=== PATIENT | female | born 1995 | race Caucasian/White ===

== ENCOUNTER 2018-05-16 10:28 | Emergency (ER) | payer SELFPAY ==
[2018-05-16 10:36] VITALS: BMI 24.7
[2018-05-16 11:22] LABS: BASO % 0.8 % (0-2.0); EOS % 0.7 % (0-4.5); HEMATOCRIT 34.8 % (32.4-45.2); HEMOGLOBIN 12.1 GM/dL (10.7-15.3); LYMPH % 36.6 % (8-40); MCH 28.5 pg (25.7-33.7); MCHC 34.9 g/dl (32.0-36.0); MEAN CELL VOLUME 81.8 fl (80-96); MONO % 6.4 % (3.8-10.2); NEUT % 55.5 % (42.8-82.8); PLATELET COUNT 253 K/MM3 (134-434); RBC 4.26 M/mm3 (3.60-5.2); RDW 13.6 % (11.6-15.6); WHITE BLOOD COUNT 5.3 K/mm3 (4.0-10.0)
--- NOTE | 2018-05-16 11:32 | PDOC ---
History of Present Illness - General Chief Complaint: Vaginal Bleeding Stated Complaint: VAGINAL BLEEDING Time Seen by Provider: 05/16/18 10:44 History Source: Patient Exam Limitations: No Limitations - History of Present Illness Initial Comments: 05/16/18 11:40 Pt is a previously healthy 22yo F presenting today for vaginal bleeding that started this AM. LMP was around 2 months ago (March 30). She took two tests and both were positive. She started having light bleeding today , not passing clots. She denies abdominal pain, n/v/d, lightheadedness, syncope , chest pain, palpitations, vaginal discharge, urinary symptoms. Denies history of STDs. She has been unable to see an document review attorney due to insurance. PMD: none PMH: none PSH: none Meds: none Allergies: nkda Social: denies Past History - Past Medical History Allergies/Adverse Reactions: Allergies Allergy/AdvReac Type Severity Reaction Status Date / Time No Known Allergies Allergy Verified 12/02/13 21:47 Home Medications: Ambulatory Orders NK [No Known Home Medication] 05/16/18 Cardiac Disorders: No COPD: No Diabetes: No HTN: No Psychiatric Problems: No - Surgical History Appendectomy: No Cholecystectomy: No Lung Surgery: No - Reproductive History Is Patient Now?: Yes (#): 1 Para: 0 - Immunization History Immunization Up to Date: Yes - Suicide/Smoking/Psychosocial Hx Smoking Status: No Smoking History: Never smoked Have you smoked in the past 12 months: No Number of Cigarettes Smoked Daily: 0 Information on smoking cessation initiated: No Hx Alcohol Use: No Drug/Substance Use Hx: No Substance Use Type: None Review of Systems - Review of Systems Constitutional: No: Chills, Fever, Weakness HEENTM: No: Symptoms Reported Respiratory: No: Shortness of Breath, Hemoptysis Cardiac (ROS): No: Chest Pain, Lightheadedness, Palpitations, Syncope ABD/GI: No: Constipated, Diarrhea, Nausea, Rectal Bleeding, Vomiting, Abdominal cramping, Tarry Stools : Yes: See HPI, Other (vaginal bleeding). No: Burning, Dysuria, Hematuria Musculoskeletal: No: Symptoms Reported Integumentary: No: Symptoms Reported Neurological: No: Symptoms reported *Physical Exam - Vital Signs Last Vital Signs Temp Pulse Resp BP Pulse Ox 98.3 F 79 18 124/89 98 05/16/18 10:34 05/16/18 10:34 05/16/18 10:34 05/16/18 10:34 05/16/18 10:34 - Physical Exam General Appearance: Yes: Nourished, Appropriately Dressed. No: Apparent Distress HEENT: positive: EOMI, ASHLEY, Normal ENT Inspection. negative: Pale Conjunctivae Neck: positive: Trachea midline, Supple. negative: Lymphadenopathy (R), Lymphadenopathy (L) Respiratory/Chest: positive: Lungs Clear, Normal Breath Sounds. negative: Rales , Rhonchi, Stridor Cardiovascular: positive: Regular Rhythm, Regular Rate, S1, S2. negative: Murmur, Tachycardia Vascular Pulses: Carotid (R): 2+, Carotid (L): 2+, Dorsalis-Pedis (R): 2+, Doralis-Pedis (L): 2+ Female Pelvic Exam: positive: normal external exam, cervical os closed, normal adnexa. negative: CMT, discharge, lesions, vaginal bleeding Gastrointestinal/Abdominal: positive: Normal Bowel Sounds, Soft. negative: Tender Musculoskeletal: negative: CVA Tenderness Extremity: positive: Normal Capillary Refill. 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 NML intact, Fully Oriented, Alert, Normal Mood/ Affect, Normal Response, Motor Strength 5/5 Moderate Sedation - Procedure Monitoring Vital Signs: Procedure Monitoring Vital Signs Temperature 98.3 F 05/16/18 10:34 Pulse Rate 79 05/16/18 10:34 Respiratory Rate 18 05/16/18 10:34 Blood Pressure 124/89 05/16/18 10:34 O2 Sat by Pulse Oximetry (%) 98 05/16/18 10:34 ED Treatment Course - LABORATORY CBC & Chemistry Diagram: 05/16/18 11:15 05/16/18 10:57 - ADDITIONAL ORDERS Additional order review: 05/16/18 11:15 RBC 4.26 MCV 81.8 MCHC 34.9 RDW 13.6 MPV 8.0 Neutrophils % 55.5 Lymphocytes % 36.6 Monocytes % 6.4 Eosinophils % 0.7 Basophils % 0.8 Medical Decision Making - Medical Decision Making 05/16/18 11:43 Pt is a previously healthy 22yo F presenting today for vaginal bleeding that started this AM. LMP was around 2 months ago (March 30). She took two tests and both were positive. She started having light bleeding today , not passing clots. She denies abdominal pain, n/v/d, lightheadedness, syncope , chest pain, palpitations, vaginal discharge, urinary symptoms. Denies history of STDs. She has been unable to see an document review attorney due to insurance. Vitals: wnl PE: benign. Os closed, no blood in vault, no CMT or adnexal tenderness or masses. DDx: ectopic, threatened , menstrual cycle, ordered basic labs and upreg. If positive, will go to [facility]. Labs wnl. Upreg positive. PT to go to [facility] and BHCG quant ordered. [facility] shows single live IUP at 6 weeks. BHCG quant compatible with 6 week . Pt has OB, will schedule appointment. Appt with pmd scheduled May 23. Pt is hemodynamically stable at this time. Will be dc home. Has appropriate f.u. 05/16/18 18:08 Pt DC prior to T+S results. Pt will need to come back for Rhogam if negative blood type T+S: AB positive. Pt does not need rhogam at this time. Will follow up with OB and PMD *DC/Admit/Observation/Transfer Diagnosis at time of Disposition: Vaginal bleeding Qualifiers: Weeks of gestation: less than 8 weeks Qualified Code(s): Z3A.01 - Less than 8 weeks gestation of - Discharge Dispostion Disposition: HOME Condition at time of disposition: Stable - Referrals Referrals: Miranda Hector MD [Staff Physician] - Summer Ly DO [Staff Physician] - - Patient Instructions Additional Instructions: You were seen here today for vaginal bleeding. Your tests show that you are , Congratulations! Please see your document review attorney in the next few days so that you can have a blood test to make sure your baby is growing. You can also come back here in 2 days for the test if you continue to have vaginal bleeding. You have an appointment on May 23 at 10:[address] Hector. Come back to the emergency room if vaginal bleeding gets worse, you start to have abdominal pain, you start vomiting, you feel lightheaded, you pass out, or if any new concerning symptom develops. Thank you - Post Discharge Activity
[2018-05-16 11:46] LABS: HCG,QUALITATIVE URINE Positive
[2018-05-16 11:52] LABS: ALK PHOS 59 U/L (45-117); ANION GAP 8 MMOL/L (8-16); BILIRUBIN,TOTAL 0.3 mg/dL (0.2-1); BLOOD UREA NITROGEN 13 mg/dL (7-18); CALCIUM 8.7 mg/dL (8.5-10.1); CHLORIDE 105 mmol/L (98-107); CO2 24 mmol/L (21-32); CREATININE 0.6 mg/dL (0.55-1.3); GLUCOSE,RANDOM 84 mg/dL (74-106); POTASSIUM 4.1 mmol/L (3.5-5.1); SGOT/AST 14 U/L (15-37); SGPT/ALT 26 U/L (13-61); SODIUM 136 mmol/L (136-145); TOT PROT 7.6 g/dl (6.4-8.2)
[2018-05-16 12:01] LABS: URINE APPEARANCE CLEAR; URINE BILIRUBIN NEGATIVE (<2.0 mg/dL); URINE COLOR YELLOW; URINE GLUCOSE (UA) NEGATIVE (NEGATIVE); URINE KETONE NEGATIVE (NEGATIVE); URINE LEUK ESTERASE NEGATIVE (NEGATIVE); URINE NITRITE NEGATIVE (NEGATIVE); URINE PROTEIN NEGATIVE (NEGATIVE); URINE UROBILINOGEN NEGATIVE mg/dL (0.2-1.0)
[2018-05-16 12:26] LABS: EPI CELLS FEW /HPF (FEW); URINE MUCUS FEW
[2018-05-16 14:42] VITALS: BP 111/65; PULSE 75; TEMP 98.5
--- NOTE | 2018-05-16 15:14 | PDOC ---
Attending Attestation - Resident Resident Name: Josy Anthony - ED Attending Attestation I have performed the following: I have examined & evaluated the patient, The case was reviewed & discussed with the resident, I agree w/resident's findings & plan - HPI HPI: 05/16/18 15:12 22y/o F LMP about 6 weeks with vaginal spotting and slight cramping. no clots. - Physicial Exam PE: 05/16/18 15:13 vss abd soft/nt/nd bs nl pelvic per resident, os closed without active bleeding - Medical Decision Making 05/16/18 15:13 22y/o F with 1st trimester vag bleeding. ua clear tvus with IUP and normal ovaries T+S sent, pt had to leave, will f/u and call back if rH negative OB f/u 05/16/18 20:44 AB +, no further intervention needed
== END 2018-05-16 14:55 | disposition home or self-care (01) ==
LOC: JER 10:28
DX: O26.891 Other specified pregnancy related conditions, first trimester (principal); Z3A.01 Less than 8 weeks gestation of pregnancy; N93.9 Abnormal uterine and vaginal bleeding, unspecified
CPT/HCPCS: 36415; 76830-TC; 80053; 81003; 81015; 84702; 84703; 85025; 86850; 86900; 86901; 99283-25

== ENCOUNTER 2018-12-15 02:12 | Inpatient (IN) | payer OTHER ==
[2018-12-15 02:27] VITALS: BMI 28.3
--- NOTE | 2018-12-15 03:02 | PDOC ---
History of Present Illness - General Chief Complaint: Cold Symptoms Stated Complaint: FEVER, 37 WKS Time Seen by Provider: 12/15/18 02:41 History Source: Patient Exam Limitations: No Limitations - History of Present Illness Initial Comments: 12/15/18 03:02 23 yo F presenting with 6 hours of fever and chills. She is 37 weeks . Measured temperature to be 101.4F at home. Denies abdominal pain, n/v/ d, dysuria, cough, rhinorrhea, or sore throat. No sick contacts. No recent abx use. Endorses good movement, no complications during this with regular WASTE DUSTER care. Denies vaginal bleeding or discharge. No pmh Meds: vitamins NKDA No surgical hx Past History - Past Medical History Allergies/Adverse Reactions: Allergies Allergy/AdvReac Type Severity Reaction Status Date / Time No Known Allergies Allergy Verified 12/15/18 02:21 Home Medications: Ambulatory Orders Nitrofurantoin Monohyd/M-Cryst [Macrobid -] 100 mg PO BID #14 capsule 12/15/18 Cardiac Disorders: No COPD: No Diabetes: No HTN: No Psychiatric Problems: No - Surgical History Appendectomy: No Cholecystectomy: No Lung Surgery: No - Reproductive History (#): 1 Para: 0 - Immunization History Immunization Up to Date: Yes - Suicide/Smoking/Psychosocial Hx Smoking Status: No Smoking History: Never smoked Have you smoked in the past 12 months: No Number of Cigarettes Smoked Daily: 0 Information on smoking cessation initiated: No Hx Alcohol Use: No Drug/Substance Use Hx: No Substance Use Type: None Review of Systems - Review of Systems Able to Perform ROS?: Yes Is the patient limited Latvian proficient: No Constitutional: Yes: Chills, Fever HEENTM: No: Ear Pain, Ear Discharge, Nose Pain, Throat Pain Respiratory: No: Cough, Shortness of Breath, Productive cough ABD/GI: No: Diarrhea, Nausea, Vomiting : No: Burning, Dysuria *Physical Exam - Vital Signs Last Vital Signs Temp Pulse Resp BP Pulse Ox 101.4 F H 97 H 18 139/87 97 12/15/18 02:21 12/15/18 02:21 12/15/18 02:21 12/15/18 02:21 12/15/18 02:21 - Physical Exam General Appearance: Yes: Nourished, Appropriately Dressed. No: Apparent Distress HEENT: positive: EOMI, ASHLEY, Normal ENT Inspection, Normal Voice, Symmetrical, TMs Normal, Pharynx Normal, Hearing Grossly Normal. negative: Muffled/Hoarse voice, Nasal Congestion, Rhinorrhea, TM Bulging, TM Dull, TM Erythema, Thrush Respiratory/Chest: positive: Lungs Clear, Normal Breath Sounds. negative: Respiratory Distress, Accessory Muscle Use, Labored Respiration, Rapid RR, Decreased Breath Sounds, Crackles, Rhonchi, Wheezing Cardiovascular: positive: Regular Rhythm, Regular Rate, S1, S2. negative: Murmur, Diastolic Murmur, Systolic Murmur, Gallop/S3, Gallop/S4 Gastrointestinal/Abdominal: positive: Normal Bowel Sounds, Soft. negative: Tender, Guarding, Rebound, Tenderness Musculoskeletal: negative: CVA Tenderness Integumentary: positive: Normal Color, Warm. 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 Endorsed a frontal headache that has since resolved. ROS negative. Physical exam benign. Fever, 37 weeks - CBC, CMP - UA, UCx - IV, NS, Tylenol Dispo: L&D obs -> home *DC/Admit/Observation/Transfer Diagnosis at time of Disposition: Third trimester Fever Qualifiers: Fever type: unspecified Qualified Code(s): R50.9 - Fever, unspecified - Discharge Dispostion Disposition: HOME Condition at time of disposition: Stable Decision to Admit order: No - Prescriptions Prescriptions: Nitrofurantoin Monohyd/M-Cryst [Macrobid -] 100 mg PO BID #14 capsule - Referrals Referrals: Elder Franklin MD [Primary Care Provider] - - Patient Instructions Printed Discharge Instructions: DI for Urinary Tract Infection (UTI) Additional Instructions: Please follow up with your WASTE DUSTER and Primary Care Physician within the next 4 days Please return to the Emergency Department if you experience any of the following symptoms: worsening fever, increasing fatigue, abdominal pain, weakness, change in mental status, or vaginal bleeding. - Post Discharge Activity
[2018-12-15] MEDS ORDERED: SODIUM CHLORIDE 0.9% 500 ML INFUS.BAG IV ONE (03:10)
[2018-12-15] MEDS ORDERED: ACETAMINOPHEN 1000 MG/100 ML VIAL (NON FORMULARY) IVPB ONE ×2 (03:10→14:38)
[2018-12-15] MEDS ORDERED: ACETAMINOPHEN INJECTION 100 ML IVPB ONE (03:43)
--- NOTE | 2018-12-15 03:59 | PDOC ---
Attending Attestation - Resident Resident Name: Wally Henning - ED Attending Attestation I have performed the following: I have examined & evaluated the patient, The case was reviewed & discussed with the resident, I agree w/resident's findings & plan, Exceptions are as noted - HPI HPI: 12/15/18 04:07 23F here with fevers and chills starting last night. No other complaints - Physicial Exam PE: 12/15/18 04:08 Agree with exam as documented by resident - Medical Decision Making 12/15/18 04:08 Likely viral syndrome symptomatic tx, re-eval dispo to L&D when acute medical eval neg
[2018-12-15 04:01] LABS: BASO % 0.4 % (0-2.0); HEMATOCRIT 25.5 % (32.4-45.2); HEMOGLOBIN 8.4 GM/dL (10.7-15.3); LYMPH % 12.1 % (8-40); MEAN CELL VOLUME 75.9 fl (80-96); MEAN PLT VOLUME 8.3 fl (7.5-11.1); MONO % 5.2 % (3.8-10.2); NEUT % 82.3 % (42.8-82.8); PLATELET COUNT 208 K/MM3 (134-434); RBC 3.36 M/mm3 (3.60-5.2); RDW 15.6 % (11.6-15.6); WHITE BLOOD COUNT 9.1 K/mm3 (4.0-10.0)
[2018-12-15 04:23] LABS: ALBUMIN 2.6 g/dl (3.4-5.0); BILIRUBIN,TOTAL 0.3 mg/dL (0.2-1); BLOOD UREA NITROGEN 10.6 mg/dL (7-18); CALCIUM 8.4 mg/dL (8.5-10.1); CREATININE 0.5 mg/dL (0.55-1.3); POTASSIUM 3.9 mmol/L (3.5-5.1); TOT PROT 5.9 g/dl (6.4-8.2)
[2018-12-15 04:43] LABS: EPI CELLS 7.5 /HPF (0-5/HPF); HYALINE CASTS 3 /lpf (0-8); URINE APPEARANCE CLEAR; URINE BILIRUBIN NEGATIVE (NEGATIVE); URINE COLOR YELLOW; URINE GLUCOSE (UA) NEGATIVE (NEGATIVE); URINE KETONE NEGATIVE (NEGATIVE); URINE LEUK ESTERASE 2+ (NEGATIVE); URINE NITRITE NEGATIVE (NEGATIVE); URINE PROTEIN TRACE (NEGATIVE); URINE RBC 2 /hpf (0-4); URINE UROBILINOGEN 0.2 mg/dL (0.2-1.0); URINE WBC 16 /hpf (0-5)
[2018-12-15] MEDS ORDERED: NITROFURANTOIN MACROCRYSTAL 50 MG CAPSULE (FP) PO ONE (05:15)
[2018-12-15] MEDS ORDERED: NITROFURANTOIN MACROCRYSTAL 50 MG CAPSULE (FP) PO SCH (05:15)
[2018-12-15] MEDS ORDERED: NITROFURANTOIN MACROCRYSTAL 50 MG CAPSULE (FP) ONE (05:24)
[2018-12-15] MEDS ORDERED: DEXTROSE 5%-LACTATED RINGERS 500 ML IV ONE ×2 (06:00→07:00)
[2018-12-15] MEDS ORDERED: CEFAZOLIN 1 GM in DEXTROSE 5%-WATER - 50 ML IVPB ONE (07:15)
[2018-12-15] MEDS ORDERED: ACETAMINOPHEN 325 MG TABLET (FP) PO PRN (08:10)
--- NOTE | 2018-12-15 08:54 | HP ---
Past Medical History - Admission Chief Complaint: Fever/chills History of Present Illness: 23 y/o with SIUP at 37 weeks with complaints of fevers/chills. Seen in ED, diagnosed with "UTI." NO contractions/cramps/VB. +FM. Pt also found to be anemic. History Source: Medical Record Limitations to Obtaining History: No Limitations - Past Medical History Cardiovascular: No: HTN, RI Pulmonary: No: Asthma, COPD Gastrointestinal: No: GERD Renal/: Yes: UTI Reproductive: No: Ectopic , Endometriosis, Fibroids ...: 1 ...Para: 0 ...Term: 0 ...: 0 ...Spon : 0 ...Induced : 0 ...EDC by Sono: 01/04/19 Heme/Onc: Yes: Anemia Infectious Disease: No: HIV, MRSA, STD's Psych: No: Anxiety, Bipolar, Depression - Past Surgical History Past Surgical History: Yes: None Hx Myomectomy: No Hx Transabdominal Cerclage: No - Smoking History Smoking history: Never smoked Have you smoked in the past 12 months: No Aproximately how many cigarettes per day: 0 - Alcohol/Substance Use Hx Alcohol Use: No - Social History Usual Living Arrangement: Yes: With Spouse ADL: Independent History of Recent Travel: No Home Medications - Allergies Allergies/Adverse Reactions: Allergies Allergy/AdvReac Type Severity Reaction Status Date / Time No Known Allergies Allergy Verified 12/15/18 02:21 - Home Medications Home Medications: Ambulatory Orders Nitrofurantoin Monohyd/M-Cryst [Macrobid -] 100 mg PO BID #14 capsule 12/15/18 Physical Exam - Maternity Vital Signs: Vital Signs Temperature 98.3 F 12/15/18 07:43 Pulse Rate 69 12/15/18 07:43 Respiratory Rate 20 12/15/18 07:43 Blood Pressure 129/79 12/15/18 07:43 O2 Sat by Pulse Oximetry (%) 100 12/15/18 06:37 Constitutional: Yes: Well Nourished, No Distress, Calm Eyes: Yes: Conjunctiva Clear HENT: Yes: Atraumatic Neck: Yes: Supple Cardiovascular: Yes: Regular Rate and Rhythm Lungs: Clear to auscultation - Abdominal Exam/OB Number of Fetuses: Single Presentation: Vertex Contractions: Yes Regularity: Irregular Intensity: Unaware Category: I Accelerations: Uniform Decelerations: None - Vaginal Exam/OB Amniotic Membrane Status: Intact Presentation: Vertex/Position - Physical Exam Psychiatric: Yes: Alert, Oriented - Labs Lab Results: CBC, BMP 12/15/18 03:47 12/15/18 03:47 Hemorrhage Risk Assessment - Risk Factors Medium Risk Factors: Yes: None High Risk Factors: Yes: None Risk Score: 1 Risk Level: Medium Risk Problem List - Problems (1) Third trimester Code(s): Z34.93 - ENCNTR FOR SUPRVSN OF NORMAL PREG, UNSP, THIRD TRIMESTER (2) Fever Code(s): R50.9 - FEVER, UNSPECIFIED Qualifiers: Fever type: unspecified Qualified Code(s): R50.9 - Fever, unspecified Assessment/Plan 23 y/o with SIUP at 37 weeks with fever, suspected pyelo s/p Macrobid PO and IV ancef currently afebrile observe overnight, if afebrile 24 hours can go home anemic, will give IV Iron while here NST Q shift
[2018-12-15 09:29] LABS: INR 1.03 (0.83-1.09); PROTHROMBIN TIME (PATIENT) 12.2 SEC (9.7-13.0)
[2018-12-15] MEDS ORDERED: FERRIC CARBOXYMALTOSE 750 MG in SODIUM CHLORIDE 250 ML IVPB ONE (09:30)
[2018-12-15 09:32] LABS: ACTIVATED PTT 26.5 SECONDS (25.2-36.5)
[2018-12-15 09:35] LABS: BLOOD UREA NITROGEN 7.2 mg/dL (7-18); CALCIUM 8.2 mg/dL (8.5-10.1); CREATININE 0.6 mg/dL (0.55-1.3); POTASSIUM 3.6 mmol/L (3.5-5.1)
[2018-12-15 09:44] LABS: BASO % 0.4 % (0-2.0); HEMATOCRIT 25.6 % (32.4-45.2); HEMOGLOBIN 8.4 GM/dL (10.7-15.3); LYMPH % 13.8 % (8-40); MCH 25.1 pg (25.7-33.7); MCHC 32.7 g/dl (32.0-36.0); MEAN CELL VOLUME 76.7 fl (80-96); MONO % 4.9 % (3.8-10.2); NEUT % 80.9 % (42.8-82.8); PLATELET COUNT 219 K/MM3 (134-434); RBC 3.33 M/mm3 (3.60-5.2); RDW 15.6 % (11.6-15.6)
[2018-12-15] MEDS: DEXTROSE 5%-LACTATED RINGERS 1,000 ML IV SCH (10:07)
[2018-12-15] MEDS ORDERED: CEFTRIAXONE 1 GM in DEXTROSE 5%-WATER - 50 ML IVPB ONE ×2 (16:35→17:15)
[2018-12-15] MEDS ORDERED: cefTRIAXone SODIUM 1 GM VIAL ONE (17:06)
[2018-12-15] MEDS ORDERED: DEXTROSE 5%-WATER - 50 ML IVPB ONE (17:06)
[2018-12-15 18:12] LABS: BASO % 0.3 % (0-2.0); EOS % 0.1 % (0-4.5); HEMATOCRIT 26.2 % (32.4-45.2); HEMOGLOBIN 8.4 GM/dL (10.7-15.3); LYMPH % 11.4 % (8-40); MCH 24.8 pg (25.7-33.7); MEAN CELL VOLUME 77.5 fl (80-96); MEAN PLT VOLUME 8.3 fl (7.5-11.1); MONO % 7.5 % (3.8-10.2); NEUT % 80.7 % (42.8-82.8); PLATELET COUNT 200 K/MM3 (134-434); RBC 3.38 M/mm3 (3.60-5.2); RDW 15.6 % (11.6-15.6); WHITE BLOOD COUNT 8.1 K/mm3 (4.0-10.0)
[2018-12-15] MEDS: ACETAMINOPHEN 325 MG TABLET (FP) PO SCH ×2 (18:40→22:42)
[2018-12-16] MEDS: DEXTROSE 5%-LACTATED RINGERS 1,000 ML IV SCH ×2 (02:34→11:17)
[2018-12-16] MEDS: ACETAMINOPHEN 325 MG TABLET (FP) PO SCH ×4 (02:34→15:23)
--- NOTE | 2018-12-16 10:26 | PN ---
Progress Note, Physician Chief Complaint: 23 y/o with SIUP at 37+ weeks admitted for pyleonephritis. S/p ancef then switched to rocephin. Afebrile since 1550 yesterday. - Current Medication List Current Medications: Active Medications Acetaminophen (Tylenol -) 650 mg PO Q4H [facility] Last Admin: 12/16/18 06:25 Dose: 650 mg Ferrous Sulfate (Feosol -) 325 mg PO TIDCM [facility] Dextrose/Lactated Ringer's (D5-Lr -) 1,000 mls @ 125 mls/hr IV ASDIR [facility] Last Admin: 12/16/18 02:34 Dose: 125 mls/hr Multivit/Folic Acid/Iron ( Vitamins (Sjr) -) 1 tab PO DAILY [facility] - Objective Vital Signs: Vital Signs Temperature 97.8 F 12/16/18 05:08 Pulse Rate 78 12/16/18 05:08 Respiratory Rate 18 12/16/18 05:08 Blood Pressure 111/60 12/16/18 05:08 O2 Sat by Pulse Oximetry (%) 100 12/15/18 06:37 Constitutional: Yes: Well Nourished, No Distress, Calm Eyes: Yes: Conjunctiva Clear, EOM Intact HENT: Yes: Atraumatic, Normocephalic Neck: Yes: Supple, Trachea Midline Cardiovascular: Yes: Regular Rate and Rhythm Respiratory: Yes: Regular, CTA Bilaterally Gastrointestinal: Yes: Normal Bowel Sounds, Soft Neurological: Yes: Alert, Oriented Psychiatric: Yes: Alert, Oriented Labs: CBC, BMP 12/15/18 17:30 12/15/18 08:45 INR, PTT INR 1.03 (0.83-1.09) 12/15/18 08:45 Problem List - Problems (1) Third trimester Code(s): Z34.93 - ENCNTR FOR SUPRVSN OF NORMAL PREG, UNSP, THIRD TRIMESTER (2) Fever Code(s): R50.9 - FEVER, UNSPECIFIED Qualifiers: Fever type: unspecified Qualified Code(s): R50.9 - Fever, unspecified (3) Pyelonephritis affecting in third trimester Code(s): O23.03 - INFECTIONS OF KIDNEY IN , THIRD TRIMESTER Assessment/Plan NST reactive no signs of labor If afebrile X 24 hours will d/c home with PO antibiotics and ATC tylenol. Anemia, s/p IV Iron X 1, to d/c home with PO Iron. will f/u urine culture and tailor abx as needed as outpt
[2018-12-16] MEDS ORDERED: PRENATAL VITAMINS W/ FOLIC ACID TABLET (FP) PO SCH (10:30)
[2018-12-16] MEDS ORDERED: FERROUS SO4 325 MG TABLET (FP) PO SCH (12:00)
--- NOTE | 2018-12-16 12:35 | DS ---
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 Vital Signs: Vital Signs Temperature 98.2 F 12/16/18 11:00 Pulse Rate 76 12/16/18 10:00 Respiratory Rate 20 12/16/18 10:00 Blood Pressure 110/60 12/16/18 10:00 O2 Sat by Pulse Oximetry (%) 100 12/15/18 06:37 Constitutional: Yes: Well Nourished, No Distress, Calm Eyes: Yes: Conjunctiva Clear HENT: Yes: WNL Cardiovascular: Yes: Regular Rate and Rhythm Respiratory: Yes: Regular Gastrointestinal: Yes: Normal Bowel Sounds, Soft, Other (gravid abdomen) Renal/: No: Bladder Distention, CVA Tenderness - Left, CVA Tenderness - Right , Vaginal Bleeding External Genitalia: Yes: Normal ....Post : Yes: Uterus non-tender Neurological: Yes: Alert, Oriented Psychiatric: Yes: Alert, Oriented Labs: CBC, BMP 12/15/18 17:30 12/15/18 08:45 Delivery, Single - Feeding Plan Initial Plan: Exclusive throughout hospitalization Discharge Summary Reason For Visit: PYELONEPHRITIS Current Active Problems Fever (Acute) Pyelonephritis affecting in third trimester (Acute) Third trimester (Acute) Hospital Course: Pt is a P0 at 37 weks gestation who was admitted on 12/15 with diagnosis of pyelonephritis. Given one dose of Ancef that morning. Pt switched to Rocephin that evening. Had Tmax 101.4 upon admission and last fever (1004.) was on 12/15 at 1550 pm. After 24 hours afebrile pt was discharged home with oral antibiotics. The patient's cervix was checked during admission and was closed , no signs of labor. NST completed every 8 hours during admission which were all reactive. Condition: Good - Instructions Diet, Activity, Other Instructions: OB Triage Discharge Instructions Dr Amezcua and Dr Ly IMPORTANT: Please follow ALL basic instructions AND any other instructions that have been marked with an X: Hydration and Elimination: _X_ Drink at least eight 8-ounce glasses of water a day _X_ Empty bladder frequently. Be sure to go to the bathroom when you first feel the urge. Don't wait! Movement Counts: _X_ Count your baby's kicks once a day Instructions: After mealtime, lay down in a quiet room (e.g., TV and radio off) . Over two (2) hours, count the number of times your baby moves. Once you have counted 10 movements, you are donel If you did not count 10 movements in two (2) hours, call your senior agricultural assistant. Notify your doctor for any of the following signs/symptoms: _X_ Less than 10 movements over two (2) hours _X_ Constant firm uterus (contraction that doesn't go away) _X_ Water gushing or leaking from the vagina; report amount, color, and odor to MD _X_ Increased vaginal discharge and/or odorous discharge _X_ Vaginal bleeding: spotting, flow, or clots _X_ Unrelieved indigestion, nausea, or vomiting _X_ Diarrhea (frequent loose/runny stools) _X_ Unrelieved headache _X_ Vision changes: blurriness, spots, flashes of light _X_ Mental confusion, or seizure _X_ Shortness of breath or difficulty breathing [ X ] Onset of contractions: 5 in an hour with pain [ X ] Low back pain or lower abdominal pain [ X ] Abdominal tenderness [ x ] Signs of bladder infection: Urgency, increased urination frequency, pain and/or burning when urinating, upper back pain or side pain [ X ] Fever > 100.4 Please continue your antibiotics and iron at home as prescribed. DO NOT stop taking medications unless you talk to your doctor first. Referrals: Summer Ly DO [Staff Physician] - 1 Week Disposition: HOME - Home Medications Comprehensive Discharge Medication List: Ambulatory Orders Cephalexin [Keflex] 500 mg PO BID #26 capsule MDD 2 12/16/18 Ferrous Sulfate [Feosol] 325 mg PO BID #60 tablet 12/16/18
[2018-12-16 16:30] VITALS: BP 121/66; PULSE 79; TEMP 97.9
== END 2018-12-16 16:34 | disposition home or self-care (01) | DRG 566 ==
LOC: JER 02:12 → JLDR 08:00 → J3W 13:07
PROVIDERS: ADMIT Obstetrics & Gynecology; ATTEND Obstetrics & Gynecology
DX: O23.03 Infections of kidney in pregnancy, third trimester (principal); R50.9 Fever, unspecified; O99.013 Anemia complicating pregnancy, third trimester; D64.9 Anemia, unspecified; Z3A.37 37 weeks gestation of pregnancy
CPT/HCPCS: 36415; 80048; 80053; 81003; 85025; 85610; 85730; 86593; 86850; 86900; 86901; 87086; 99283-25; J0131; J1439

== ENCOUNTER 2019-01-11 13:27 | Inpatient (IN) | payer OTHER ==
[2019-01-11] MEDS ORDERED: PROMETHAZINE HCL 25 MG/1 ML VIAL IVPB ONE (13:41)
--- NOTE | 2019-01-11 13:50 | HP ---
Past Medical History - Admission Chief Complaint: painful contractions History of Present Illness: 23 y/o with SIUP at 41 weeks here with c/o painful contractions since this a.m. some vaginal spotting, no LOF. +Fm. complicated by admission for pyelonephritis for which pt received IV antibiotics and has been on suppression since. Otherwise no complications. History Source: Patient, Medical Record Limitations to Obtaining History: No Limitations - Past Medical History Cardiovascular: No: HTN Pulmonary: No: Asthma, COPD Renal/: Yes: UTI (+UTi this with pyelo at 36 weeks, has been on PO antibiotic suppression) ...: 1 ...Para: 0 ... Weeks Gestation by Dates: 41 Heme/Onc: Yes: Anemia - Past Surgical History Past Surgical History: Yes: None Hx Myomectomy: No Hx Transabdominal Cerclage: No - Smoking History Smoking history: Never smoked Have you smoked in the past 12 months: No Aproximately how many cigarettes per day: 0 - Alcohol/Substance Use Hx Alcohol Use: No - Social History ADL: Independent History of Recent Travel: No Home Medications - Allergies Allergies/Adverse Reactions: Allergies Allergy/AdvReac Type Severity Reaction Status Date / Time No Known Allergies Allergy Verified 01/11/19 13:41 - Home Medications Home Medications: Ambulatory Orders Ferrous Sulfate [Feosol] 325 mg PO BID #60 tablet 12/16/18 Cephalexin [Keflex] 500 mg PO DAILY MDD 1 01/08/19 Pnv No.95/Ferrous Fum/Folic AC [ Formula] 1 each PO DAILY 01/08/19 Review of Systems - Review of Systems Constitutional: reports: No Symptoms Eyes: reports: No Symptoms HENT: reports: No Symptoms Neck: reports: No Symptoms Cardiovascular: reports: No Symptoms Respiratory: reports: No Symptoms Gastrointestinal: reports: No Symptoms Genitourinary: reports: Vaginal Bleeding (spotting) Musculoskeletal: reports: No Symptoms Integumentary: reports: No Symptoms Neurological: reports: No Symptoms Endocrine: reports: No Symptoms Hematology/Lymphatic: reports: No Symptoms Psychiatric: reports: No Symptoms Physical Exam - Maternity Constitutional: Yes: Well Nourished, Calm, Mild Distress (with contractions appears uncomfortable) HENT: Yes: Atraumatic Cardiovascular: Yes: Regular Rate and Rhythm Lungs: Clear to auscultation - Abdominal Exam/OB Fundal Height: 40 Number of Fetuses: Single Presentation: Vertex Contractions: Yes Regularity: Regular Intensity: Mild/Mod Category: I Accelerations: Uniform Decelerations: None - Vaginal Exam/OB Vaginal Bleediing: Yes (light brown spotting) Dilatation (cm): 0 Effacement (%): 70 Amniotic Membrane Status: Intact - Physical Exam Psychiatric: Yes: Alert, Oriented Hemorrhage Risk Assessment - Risk Factors Medium Risk Factors: Yes: None High Risk Factors: Yes: None Risk Score: 1 Risk Level: Medium Risk Problem List - Problems (1) Post-dates Code(s): O48.0 - POST-TERM Assessment/Plan 23 y/o with SIUP at 41 weeks, painful contractions admit to L&D expectant management if no progress by this evening will do cervidil induction
[2019-01-11] MEDS ORDERED: BUTORPHANOL TARTRATE 1 MG/ML VIAL IVPB ONE (14:00)
[2019-01-11 14:30] VITALS: BMI 31.6
[2019-01-11] MEDS ORDERED: DEXTROSE 5%-LACTATED RINGERS 1,000 ML IV SCH (15:00)
[2019-01-11 15:08] LABS: BASO % 0.4 % (0-2.0); EOS % 0.4 % (0-4.5); HEMATOCRIT 31.4 % (32.4-45.2); HEMOGLOBIN 10.4 GM/dL (10.7-15.3); LYMPH % 18.1 % (8-40); MCH 27.9 pg (25.7-33.7); MCHC 33.3 g/dl (32.0-36.0); MEAN CELL VOLUME 83.8 fl (80-96); MONO % 5.8 % (3.8-10.2); NEUT % 75.3 % (42.8-82.8); PLATELET COUNT 156 K/MM3 (134-434); RBC 3.74 M/mm3 (3.60-5.2); RDW 27.1 % (11.6-15.6); WHITE BLOOD COUNT 8.3 K/mm3 (4.0-10.0)
[2019-01-11 15:21] LABS: INR 0.95 (0.83-1.09); PROTHROMBIN TIME (PATIENT) 11.2 SEC (9.7-13.0)
[2019-01-11 15:24] LABS: ACTIVATED PTT 28.8 SECONDS (25.2-36.5)
[2019-01-11 15:30] LABS: BLOOD UREA NITROGEN 13.4 mg/dL (7-18); CALCIUM 8.8 mg/dL (8.5-10.1); CREATININE 0.5 mg/dL (0.55-1.3); POTASSIUM 4.1 mmol/L (3.5-5.1)
[2019-01-11 15:46] LABS: ANISOCYTOSIS 1+; MACROCYTOSIS 1+; PLATELET ESTIMATE DECREASED
[2019-01-11] MEDS ORDERED: DINOPROSTONE 10 MG VAGINAL SUPPOSITORY VG ONE (18:15)
--- NOTE | 2019-01-12 08:57 | PN ---
Ante-Partal Exam - Subjective Subjective: Pt feeling contractions overnight. Vital Signs: Vital Signs Temperature 98.5 F 01/12/19 06:00 Pulse Rate 72 01/12/19 07:00 Respiratory Rate 20 01/12/19 07:00 Blood Pressure 136/85 01/12/19 07:00 O2 Sat by Pulse Oximetry (%) Bleeding: No Headache: No Visual changes: No Right upper quadrant pain: No Pain (scale 1-10): 4 - Contractions Contractions: Yes Regularity: Regular - Exam during Labor Heart Rate: 130 Variability: Moderate Category: I Monitor Accelerations: Present Monitor Decelerations: None Exam: Vaginal Dilatation (cm): 0.5 Effacement (%): 70 Amniotic Membrane Status: Intact Presentation: Vertex Station: -2 (exam per nursing staff) - Assessment/Plan Assessment/Plan: IOL for late term/post dates FHR cat 1 ok for breakfast, then NPO to start pitocin GBs neg
[2019-01-12] MEDS ORDERED: OXYTOCIN 30 UNITS in 0.9% NS 30 UNIT/500 ML INFUS.BAG IVPB SCH (09:00)
[2019-01-12] MEDS: PRENATAL VITAMINS W/ FOLIC ACID TABLET (FP) PO SCH (10:12)
[2019-01-12] MEDS ORDERED: PROMETHAZINE HCL 25 MG/1 ML VIAL ONE (11:03)
[2019-01-12] MEDS ORDERED: BUTORPHANOL TARTRATE 1 MG/ML VIAL ONE ×2 (11:03)
[2019-01-12] MEDS ORDERED: PROMETHAZINE HCL 25 MG/1 ML VIAL IVPB ONE (12:00)
[2019-01-12] MEDS ORDERED: BUTORPHANOL TARTRATE 2 MG/ML VIAL IVPB ONE (12:00)
[2019-01-12] MEDS ORDERED: FENTANYL/BUPIVACAINE/NS/PF - PCEA - 50 ML DISP.SYRIN EP ONE ×3 (15:19→22:07)
[2019-01-12] MEDS ORDERED: FENTANYL/BUPIVACAINE/NS/PF - PCEA - 50 ML DISP.SYRIN EP SCH (16:00)
[2019-01-12] MEDS ORDERED: NALOXONE HCL 0.4 MG/ML VIAL IVPUSH PRN (16:00)
[2019-01-12] MEDS ORDERED: ELECTROLYTE-148 SOLN 1,000 ML IV SCH (18:00)
--- NOTE | 2019-01-12 23:03 | PN ---
Ante-Partal Exam - Subjective Subjective: Pt feeling intense pressure with contractions. Vital Signs: Vital Signs Temperature 98.4 F 01/12/19 22:00 Pulse Rate 84 01/12/19 21:45 Respiratory Rate 20 01/12/19 21:45 Blood Pressure 134/88 01/12/19 21:45 O2 Sat by Pulse Oximetry (%) 99 01/12/19 21:45 Bleeding: Yes Bleeding Description: Mild Headache: No Visual changes: No Right upper quadrant pain: No Pain (scale 1-10): 7 - Contractions Contractions: Yes Regularity: Regular Intensity: Strong - Exam during Labor Heart Rate: 130 Variability: Moderate Category: I Monitor Accelerations: Present Monitor Decelerations: None Exam: Vaginal Dilatation (cm): 6 Effacement (%): 90 Amniotic Membrane Status: Ruptured Presentation: Vertex Station: -1 - Assessment/Plan Assessment/Plan: Pt with increasing pain regular contactions, s/p SROM anesthesia top off continue active management
[2019-01-12] MEDS ORDERED: BUPIVACAINE HCL/PF 0.25% (2.5MG/ML) 10 ML VIAL ONE (23:08)
[2019-01-13] MEDS ORDERED: FENTANYL/BUPIVACAINE/NS/PF - PCEA - 50 ML DISP.SYRIN EP ONE ×3 (02:18→07:06)
[2019-01-13] MEDS ORDERED: BUPIVACAINE HCL/PF 0.25% (2.5MG/ML) 10 ML VIAL ONE (03:28)
--- NOTE | 2019-01-13 03:35 | PN ---
Ante-Partal Exam - Subjective Subjective: Pt feeling contractions, had top off from anesthesia around 11 which provided relief, they are worsening now. Vital Signs: Vital Signs Temperature 98.8 F 01/13/19 01:00 Pulse Rate 95 H 01/13/19 02:15 Respiratory Rate 20 01/13/19 02:15 Blood Pressure 143/89 01/13/19 02:15 O2 Sat by Pulse Oximetry (%) 97 01/13/19 02:15 Bleeding: Yes Bleeding Description: Mild Headache: No Visual changes: No Right upper quadrant pain: No - Contractions Contractions: Yes Regularity: Regular - Exam during Labor Heart Rate: 135 Variability: Moderate Category: I Monitor Accelerations: Present Monitor Decelerations: None Exam: Vaginal Dilatation (cm): 7.5 Effacement (%): 90 Amniotic Membrane Status: Ruptured Presentation: Vertex Station: -2 - Assessment/Plan Assessment/Plan: Continue pitocin/active management anesthesia gave a 2nd top off FHTs cat 1 mildly elevated BPs - pt in discomfort and otherwise asymptomatic, will monitor
--- NOTE | 2019-01-13 06:31 | PN ---
Ante-Partal Exam - Subjective Subjective: Pt tolerating contractions Vital Signs: Vital Signs Temperature 98.5 F 01/13/19 05:00 Pulse Rate 106 H 01/13/19 05:15 Respiratory Rate 20 01/13/19 05:15 Blood Pressure 135/89 01/13/19 05:15 O2 Sat by Pulse Oximetry (%) 100 01/13/19 05:15 Bleeding: Yes Bleeding Description: Mild Headache: No Visual changes: No Right upper quadrant pain: No - Contractions Contractions: Yes Regularity: Regular - Exam during Labor Heart Rate: 120 Variability: Moderate Category: I Monitor Accelerations: Present Monitor Decelerations: None Exam: Vaginal Dilatation (cm): 8 Effacement (%): 100 Presentation: Vertex Station: -1 - Assessment/Plan Assessment/Plan: Continue with pitocin anticipate
[2019-01-13] MEDS ORDERED: BUTORPHANOL TARTRATE 1 MG/ML VIAL IM PRN (07:14)
[2019-01-13] MEDS ORDERED: AMPICILLIN - 2 GM in SODIUM CHLORIDE 100 ML IVPB ONE (07:15)
[2019-01-13] MEDS ORDERED: AMPICILLIN SODIUM 2 GM VIAL ONE (07:17)
[2019-01-13] MEDS ORDERED: PROMETHAZINE HCL 25 MG/1 ML VIAL ONE (07:17)
[2019-01-13] MEDS ORDERED: OXYTOCIN 20 UNITS in 0.9% NS 20 UNIT/1,000 ML INFUS.BAG IV ONE ×2 (10:17→12:15)
[2019-01-13] MEDS ORDERED: LIDOCAINE HCL 1% PRESERVATIVE FREE - 30ML VIAL ONE (10:17)
[2019-01-13] MEDS ORDERED: METHYLERGONOVINE MALEATE 0.2 MG/1 ML AMP IM PRN (11:29)
[2019-01-13] MEDS ORDERED: BENZOCAINE 20% 57 GM BOTTLE TP PRN (11:29)
[2019-01-13] MEDS ORDERED: BENZOCAINE 28 GM HEMORRHOIDAL OINTMENT TP PRN (11:29)
[2019-01-13] MEDS ORDERED: oxyCODONE HCL 5 MG TABLET PO PRN (11:29)
[2019-01-13] MEDS ORDERED: WITCH HAZEL 50% (TUCKS) 40 PAD/JAR PAD TP PRN (11:29)
--- NOTE | 2019-01-13 11:34 | PN ---
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: No Gender: Male Position: Left, OA - 1 Minute Total Score: 9 5 Minutes Total Score: 9 - Wing Feeding Plan Initial Plan: Elected not to breastfeed exclusively throughout hospitalization Remarks - Remarks Remarks: Uncomplicated from WANDA position across 2nd degree lac anterior shoudler (right) delivered with ease along with remainder of nose/mouth bulb suctioned after delivery no nuchal cord noted 3vc noted, clamped and cut placenta delivered in tact, spontaneously 2nd degree repaired with 2-0 chromic and 3-0 vicryl left periurethral lac repaired with single figure of 8 suture ebl 400cc sponge and needle count correct mom stable baby to well baby nursery
[2019-01-13] MEDS ORDERED: OXYTOCIN 20 UNITS in 0.9% NS 20 UNIT/1,000 ML INFUS.BAG IV SCH (11:45)
[2019-01-13] MEDS ORDERED: IBUPROFEN 600 MG TABLET (FP) PO ONE (12:15)
[2019-01-13] MEDS: IBUPROFEN 600 MG TABLET (FP) PO PRN ×2 (12:20→21:36)
[2019-01-13] MEDS: PRENATAL VITAMINS W/ FOLIC ACID TABLET (FP) PO SCH (14:01)
[2019-01-13] MEDS: DOCUSATE SODIUM 100 MG CAPSULE (FP) PO SCH (21:36)
[2019-01-13] MEDS: ACETAMINOPHEN 325 MG TABLET (FP) PO PRN (21:37)
[2019-01-13] MEDS: SENNOSIDES/DOCUSATE COMBO (SENNA PLUS) TABLET (UD) PO SCH (21:38)
[2019-01-14 08:54] LABS: BASO % 0.4 % (0-2.0); EOS % 0.7 % (0-4.5); HEMATOCRIT 23.7 % (32.4-45.2); HEMOGLOBIN 7.6 GM/dL (10.7-15.3); LYMPH % 16.5 % (8-40); MCH 27.7 pg (25.7-33.7); MCHC 32.3 g/dl (32.0-36.0); MEAN CELL VOLUME 85.8 fl (80-96); MEAN PLT VOLUME 7.7 fl (7.5-11.1); MONO % 4.6 % (3.8-10.2); NEUT % 77.8 % (42.8-82.8); RBC 2.76 M/mm3 (3.60-5.2); RDW 27.3 % (11.6-15.6); WHITE BLOOD COUNT 14.4 K/mm3 (4.0-10.0)
[2019-01-14 09:05] LABS: PLATELET COUNT 149 K/MM3 (134-434)
[2019-01-14] MEDS: DOCUSATE SODIUM 100 MG CAPSULE (FP) PO SCH ×2 (09:12→21:18)
[2019-01-14] MEDS: PRENATAL VITAMINS W/ FOLIC ACID TABLET (FP) PO SCH (09:12)
[2019-01-14 09:14] LABS: ALBUMIN 1.8 g/dl (3.4-5.0); BILIRUBIN,TOTAL 0.2 mg/dL (0.2-1); CALCIUM 7.8 mg/dL (8.5-10.1); CREATININE 0.5 mg/dL (0.55-1.3); POTASSIUM 3.4 mmol/L (3.5-5.1); TOT PROT 4.4 g/dl (6.4-8.2); URIC ACID 4.9 mg/dL (2.6-7.2)
--- NOTE | 2019-01-14 10:52 | PN ---
Post Progress Note - Subjective Subjective: Pt seen/evaluated. Pt OOB to chair feeding baby upon my arrival, looks well. C /O perineal soreness otherwise no complaints. OOB, voiding, tolerating diet. Type of Delivery: Vital Signs: Vital Signs Temperature 97.8 F 01/14/19 05:56 Pulse Rate 72 01/14/19 05:56 Respiratory Rate 18 01/14/19 05:56 Blood Pressure 127/74 01/14/19 05:56 O2 Sat by Pulse Oximetry (%) 99 01/13/19 08:45 Breast Exam: Yes: Soft Uterus: Yes: Fundus Firm Abdomen/GI: Yes: Abdomen soft Lochia: Yes: Rubra Lochia, amount: Small Extremities: Yes: Calves non-tender Perineum: Yes: Laceration (in tact, swelling on perineum) Activity: Ambulating - Labs Labs: CBC WBC 14.4 K/mm3 (4.0-10.0) H 01/14/19 08:10 RBC 2.76 M/mm3 (3.60-5.2) L 01/14/19 08:10 Hgb 7.6 GM/dL (10.7-15.3) L 01/14/19 08:10 Hct 23.7 % (32.4-45.2) L D 01/14/19 08:10 MCV 85.8 fl (80-96) 01/14/19 08:10 MCH 27.7 pg (25.7-33.7) 01/14/19 08:10 MCHC 32.3 g/dl (32.0-36.0) 01/14/19 08:10 RDW 27.3 % (11.6-15.6) H 01/14/19 08:10 Plt Count 149 K/MM3 (134-434) 01/14/19 08:10 MPV 7.7 fl (7.5-11.1) 01/14/19 08:10 Absolute Neuts (auto) 11.2 K/mm3 (1.5-8.0) H 01/14/19 08:10 Neutrophils % 77.8 % (42.8-82.8) 01/14/19 08:10 Lymphocytes % 16.5 % (8-40) 01/14/19 08:10 Monocytes % 4.6 % (3.8-10.2) 01/14/19 08:10 Eosinophils % 0.7 % (0-4.5) 01/14/19 08:10 Basophils % 0.4 % (0-2.0) 01/14/19 08:10 Nucleated RBC % 0 % (0-0) 01/14/19 08:10 Hypochromia 0 01/11/19 14:45 Platelet Estimate Decreased 01/11/19 14:45 Polychromasia 1+ 01/11/19 14:45 Poikilocytosis 0 01/11/19 14:45 Anisocytosis 1+ 01/11/19 14:45 Microcytosis 1+ 01/11/19 14:45 Macrocytosis 1+ 01/11/19 14:45 Problem List - Problems (1) Post-dates Code(s): O48.0 - POST-TERM (2) Vaginal delivery Code(s): O80 - ENCOUNTER FOR FULL-TERM UNCOMPLICATED DELIVERY Assessment/Plan 23 y/o PPD#1 s/p normal Afebrile VSS Hgb 7.6 this a.m., will repeat this afternoon to ensure is stable ice to perineum regular diet PO pain meds routine care
[2019-01-14 14:57] LABS: BASO % 0.4 % (0-2.0); EOS % 0.4 % (0-4.5); HEMATOCRIT 25.5 % (32.4-45.2); HEMOGLOBIN 8.1 GM/dL (10.7-15.3); LYMPH % 14.5 % (8-40); MCH 27.4 pg (25.7-33.7); MCHC 31.7 g/dl (32.0-36.0); MEAN CELL VOLUME 86.2 fl (80-96); MEAN PLT VOLUME 7.8 fl (7.5-11.1); MONO % 4.7 % (3.8-10.2); PLATELET COUNT 179 K/MM3 (134-434); RBC 2.96 M/mm3 (3.60-5.2); RDW 27.5 % (11.6-15.6); WHITE BLOOD COUNT 15.2 K/mm3 (4.0-10.0)
[2019-01-14] MEDS: IBUPROFEN 600 MG TABLET (FP) PO PRN (21:18)
[2019-01-14] MEDS: ACETAMINOPHEN 325 MG TABLET (FP) PO PRN (21:19)
[2019-01-14] MEDS: SENNOSIDES/DOCUSATE COMBO (SENNA PLUS) TABLET (UD) PO SCH (21:21)
--- NOTE | 2019-01-14 22:01 | DS ---
Physical Exam-RATE MANAGER Vital Signs: Vital Signs Temperature 98.8 F 01/14/19 14:00 Pulse Rate 95 H 01/14/19 14:00 Respiratory Rate 20 01/14/19 14:00 Blood Pressure 135/82 01/14/19 14:00 O2 Sat by Pulse Oximetry (%) 99 01/13/19 08:45 Constitutional: Yes: Well Nourished, No Distress, Calm Eyes: Yes: EOM Intact HENT: Yes: Atraumatic Neck: Yes: Supple Cardiovascular: Yes: Regular Rate and Rhythm Respiratory: Yes: CTA Bilaterally Gastrointestinal: Yes: Normal Bowel Sounds, Soft Wound/Incision: Yes: Well Approximated Psychiatric: Yes: Alert, Oriented Labs: CBC, BMP 01/14/19 14:36 01/14/19 08:10 Delivery - Delivery Vaginal Delivery: No Problems Type of Anesthesia: Epidural Episiotomy/Laceration: Periurethral Extnsion/lac, 2nd degree EBL (cc): 400 Delivery, Single - Stages of Labor Date 1st Stage Initiatied: 01/12/19 Time 1st Stage Initiated: 09:00 Date 2nd Stage Initiated: 01/13/19 Time 2nd Stage Initiated: 09:15 Date of Delivery: 01/13/19 Time of Delivery: 10:52 Time Placenta Delivered: 10:59 Placenta: Yes: Spontaneous - Condition of Infant Mason Tender/Casino Gaming Inspector Present: No Infant Gender: Male Weight: 8 lb 5 oz Position: Left, OA Total Hours ROM (Hrs/Mins): 21H25M - 1 Minute Total Score: 9 5 Minutes Total Score: 9 - Feeding Plan Initial Plan: Elected not to breastfeed exclusively throughout hospitalization Discharge Summary Reason For Visit: LABOR ADMISSION Current Active Problems Post-dates (Acute) Vaginal delivery (Acute) Hospital Course: Pt admitted in early labor on 01/11/19. After minimal progress, pt given cervidil that evening for induction. On the morning of 01/12/19 the patient was 1cm dilated and pitocin was started. She progressed in labor throughout the next 24 hours and underwent an uncomplicated on 01/13/19 - see delivery note for details. The patient was anemic post , but CBC was stable with final Hgb 8.1. Pt was on oral iron as outpatient and this was resumed. The patient otherwise had an uncomplicated post course and was discharged home on post day 2. Condition: Good - Instructions Diet, Activity, Other Instructions: Physical activity Resume your normal everyday activity as tolerated but no heavy lifting or strenuous exercise until seen by your doctor. You may walk unlimited amounts and climb stairs. You may resume driving the car when you feel safe and comfortable behind the wheel. No sexual activity as instructed. You may shower daily. No submerging in tubs/baths/pools for 4-6 weeks or until cleared by your doctor. Diet There are no dietary restrictions. Eat healthy, high-fiber foods. Drink 6 to 8 glasses of liquid each day. This will assist in keeping your bowels regular. Pain management You may take Tylenol or Ibuprofen (for example, Motrin, Advil etc.) as needed for pain . Call MD for any of the following: Severe pain not relieved by medication Fever of 101 or higher Excessive bleeding or drainage on dressing Inability to urinate Disposition: HOME - Home Medications Comprehensive Discharge Medication List: Ambulatory Orders Ferrous Sulfate [Feosol] 325 mg PO BID #60 tablet 01/14/19 Ibuprofen [Motrin -] 600 mg PO Q6H PRN #28 tablet MDD 4 01/14/19 Pnv No.95/Ferrous Fum/Folic AC [ Formula Tablet] 1 each PO DAILY #30 tablet MDD 1 01/14/19
[2019-01-15] MEDS: PRENATAL VITAMINS W/ FOLIC ACID TABLET (FP) PO SCH (09:57)
[2019-01-15] MEDS: DOCUSATE SODIUM 100 MG CAPSULE (FP) PO SCH (09:57)
[2019-01-15 13:50] VITALS: BP 137/92; PULSE 78; TEMP 98.7
== END 2019-01-15 14:42 | disposition home or self-care (01) | DRG 560 ==
LOC: JLDR 13:27 → J3W 01-13 13:04
PROVIDERS: ADMIT Obstetrics & Gynecology; ATTEND Obstetrics & Gynecology
PROC: 0KQM0ZZ Repair Perineum Muscle, Open Approach (ICD-10-PCS; principal; 2019-01-13)
PROC: 10E0XZZ Delivery of Products of Conception, External Approach (ICD-10-PCS; 2019-01-13)
DX: O48.0 Post-term pregnancy (principal); O70.1 Second degree perineal laceration during delivery; Z3A.41 41 weeks gestation of pregnancy; Z37.0 Single live birth
CPT/HCPCS: 36415; 59409; 80048; 80053; 83615; 84550; 85025; 85610; 85730; 86593; 86850; 86900; 86901; 87086

== ENCOUNTER 2020-07-03 14:15 | Emergency (ER) | payer OTHER ==
[2020-07-03 14:36] VITALS: BP 123/52; PULSE 98; BMI 26.5
[2020-07-03 15:56] LABS: BASO % 0.7 % (0-2.0); EOS % 2.2 % (0-4.5); HEMATOCRIT 29.8 % (32.4-45.2); HEMOGLOBIN 9.2 GM/dL (10.7-15.3); LYMPH % 40.8 % (8-40); MCH 21.5 pg (25.7-33.7); MCHC 30.9 g/dl (32.0-36.0); MEAN CELL VOLUME 69.6 fl (80-96); MEAN PLT VOLUME 7.9 fl (7.5-11.1); MONO % 6.3 % (3.8-10.2); PLATELET COUNT 310 K/MM3 (134-434); RBC 4.29 M/mm3 (3.60-5.2); RDW 16.5 % (11.6-15.6); WHITE BLOOD COUNT 6.8 K/mm3 (4.0-10.0)
[2020-07-03 16:00] LABS: EPI CELLS 21 /uL (0-25.1); HYALINE CASTS 1 /uL (0-3.1); PH,URINE 5.5 (5.0-8.0); URINE APPEARANCE CLEAR; URINE BACTERIA 472 /uL (0-1359); URINE BILIRUBIN NEGATIVE (NEGATIVE); URINE COLOR YELLOW; URINE GLUCOSE (UA) NEGATIVE (NEGATIVE); URINE KETONE NEGATIVE (NEGATIVE); URINE LEUK ESTERASE 1+ (NEGATIVE); URINE NITRITE NEGATIVE (NEGATIVE); URINE PROTEIN NEGATIVE (NEGATIVE); URINE RBC 10 /uL (0-23.9); URINE UROBILINOGEN 0.2 mg/dL (0.2-1.0); URINE WBC 25 /uL (0-25.8)
[2020-07-03 16:01] LABS: HCG,QUALITATIVE URINE Negative
[2020-07-03 16:21] LABS: ALBUMIN 3.8 g/dl (3.4-5.0); BLOOD UREA NITROGEN 18.8 mg/dL (7-18); CALCIUM 8.9 mg/dL (8.5-10.1)
[2020-07-03 16:25] LABS: CREATININE 0.6 mg/dL (0.55-1.3)
[2020-07-03 16:26] LABS: BILIRUBIN,TOTAL 0.2 mg/dL (0.2-1); TOT PROT 7.4 g/dl (6.4-8.2)
[2020-07-03 18:03] LABS: ANISOCYTOSIS 2+; MACROCYTOSIS 1+; PLATELET ESTIMATE NORMAL
== END 2020-07-03 18:13 | disposition home or self-care (01) ==
LOC: JER 14:15
DX: N83.292 Other ovarian cyst, left side (principal); N39.0 Urinary tract infection, site not specified
CPT/HCPCS: 36415; 76830-TC; 76856-TC; 80053; 81003; 84703; 85025; 99285-25

== ENCOUNTER 2022-09-30 20:10 | Emergency (ER) | payer OTHER ==
[2022-09-30 20:21] VITALS: BP 101/66; PULSE 70; RESP 18; TEMP 98.2; BMI 28.0
== END 2022-09-30 23:23 | disposition home or self-care (01) ==
LOC: JERFT 20:10
DX: H92.02 Otalgia, left ear (principal)
CPT/HCPCS: 99282-25

== ENCOUNTER 2023-06-20 20:25 | Inpatient (IN) | payer OTHER ==
[2023-06-20] MEDS: ELECTROLYTE-148 SOLN 1,000 ML IV SCH (21:00)
[2023-06-20] MEDS ORDERED: DINOPROSTONE 10 MG VAGINAL SUPPOSITORY VG ONE (21:15)
[2023-06-20 21:48] LABS: BASO % 0.7 % (0-2.0); EOS % 0.7 % (0-4.5); HEMATOCRIT 28.7 % (32.4-45.2); HEMOGLOBIN 8.9 GM/dL (10.7-15.3); LYMPH % 32.6 % (8-40); MCH 22.5 pg (25.7-33.7); MEAN CELL VOLUME 72.5 fl (80-96); MEAN PLT VOLUME 8.5 fl (7.5-11.1); MONO % 4.3 % (3.8-10.2); NEUT % 61.7 % (42.8-82.8); PLATELET COUNT 237 10^3/uL (134-434); RBC 3.96 M/mm3 (3.60-5.2); RDW 19.8 % (11.6-15.6); WHITE BLOOD COUNT 7.5 K/mm3 (4.0-10.0)
[2023-06-20 21:57] LABS: INR 0.98 (0.83-1.09); PROTHROMBIN TIME (PATIENT) 11.4 SEC (9.7-13.0)
[2023-06-20 22:00] LABS: ACTIVATED PTT 26.4 SECONDS (25.2-36.5)
[2023-06-20 22:12] LABS: POTASSIUM 4.2 mmol/L (3.5-5.1)
[2023-06-20 22:14] LABS: CALCIUM 8.3 mg/dL (8.5-10.1)
[2023-06-20 22:15] LABS: BLOOD UREA NITROGEN 14.1 mg/dL (7-18)
[2023-06-20 22:17] LABS: CREATININE 0.5 mg/dL (0.55-1.3); URIC ACID 5.4 mg/dL (2.6-7.2)
[2023-06-20 22:28] VITALS: BMI 28.0
[2023-06-20] MEDS ORDERED: LABETALOL HCL 200 MG TABLET (FP) PO ONE (22:45)
[2023-06-20] MEDS ORDERED: LABETALOL HCL 200 MG TABLET (FP) ONE (22:48)
[2023-06-21] MEDS: ELECTROLYTE-148 SOLN 1,000 ML IV SCH ×3 (04:15→18:25)
[2023-06-21 09:08] LABS: RETICULOCYTES 1.93 % (0.5-1.5)
[2023-06-21 09:23] LABS: SGOT/AST 14 U/L (15-37); SGPT/ALT 11 U/L (13-61)
[2023-06-21 09:25] LABS: GAMMA GLUTAMYL TRANSPEPTIDASE 8 U/L (5-85)
[2023-06-21] MEDS ORDERED: PROMETHAZINE HCL 25 MG/1 ML VIAL IVPB ONE (10:59)
[2023-06-21] MEDS ORDERED: BUTORPHANOL TARTRATE 2 MG/ML VIAL IVPB PRN (10:59)
[2023-06-21] MEDS ORDERED: FENTANYL/BUPIVACAINE/NS/PF - PCEA - 50 ML DISP.SYRIN EP ONE ×3 (11:07→18:18)
[2023-06-21] MEDS ORDERED: LABETALOL HCL 200 MG TABLET (FP) PO SCH (11:15)
[2023-06-21] MEDS ORDERED: OXYTOCIN 30 UNITS in 0.9% NS 30 UNIT/500 ML INFUS.BAG IVPB SCH (11:15)
[2023-06-21] MEDS ORDERED: FENTANYL CITRATE/PF 50 MCG/ML VIAL ONE ×3 (11:53→18:41)
[2023-06-21] MEDS: FENTANYL/BUPIVACAINE/NS/PF - PCEA - 50 ML DISP.SYRIN EP SCH ×3 (12:10→18:25)
[2023-06-21] MEDS ORDERED: NALOXONE HCL 0.4 MG/ML VIAL IVPUSH PRN (12:23)
[2023-06-21] MEDS ORDERED: OXYTOCIN 30 UNITS in 0.9% NS 30 UNIT/500 ML INFUS.BAG IVPB ONE (13:02)
[2023-06-21] MEDS ORDERED: BUPIVACAINE HCL/PF 0.25% (2.5MG/ML) 10 ML VIAL ONE ×2 (14:22→18:41)
[2023-06-21] MEDS ORDERED: LABETALOL HCL 20 MG/4 ML VIAL IVPUSH ONE (16:50)
[2023-06-21] MEDS ORDERED: LABETALOL HCL 20 MG/4 ML VIAL ONE ×2 (16:56→19:47)
[2023-06-21] MEDS ORDERED: LABETALOL HCL 200 MG TABLET (FP) ONE (17:42)
[2023-06-21] MEDS ORDERED: LABETALOL HCL 200 MG TABLET (FP) PO ONE (18:00)
[2023-06-21] MEDS ORDERED: LIDOCAINE HCL 1% PRESERVATIVE FREE - 30ML VIAL ONE (19:08)
[2023-06-21] MEDS ORDERED: OXYTOCIN 20 UNITS in 0.9% NS 20 UNIT/1,000 ML INFUS.BAG IV ONE (19:08)
[2023-06-21] MEDS ORDERED: SUCCINYLCHOLINE CHLORIDE 200 MG/10 ML SYRINGE ONE (19:59)
[2023-06-21] MEDS ORDERED: PROPOFOL 20 ML ONE ×2 (20:00→20:19)
[2023-06-21] MEDS ORDERED: ceFAZolin SODIUM 1 GM VIAL ONE ×2 (20:08)
[2023-06-21] MEDS ORDERED: morphine SULFATE/PF 1 MG/2 ML (2cc Syringe - QUVA) ONE (20:20)
[2023-06-21] MEDS ORDERED: OXYTOCIN 10 UNITS/ML VIAL ONE ×3 (20:25→20:26)
[2023-06-21] MEDS ORDERED: ONDANSETRON 4 MG/2 ML VIAL ONE (20:26)
[2023-06-21] MEDS ORDERED: DEXAMETHASONE SOD PHOSPHATE 4 MG/1 ML VIAL ONE (20:26)
[2023-06-21] MEDS ORDERED: KETOROLAC TROMETHAMINE 30 MG/1 ML VIAL ONE (20:26)
[2023-06-21] MEDS ORDERED: AZITHROMYCIN IVPB 500 MG/250 ML BAG IVPB ONE (20:32)
[2023-06-21] MEDS ORDERED: LABETALOL HCL 5 MG/1 ML (100MG/20 ML VIAL) IVPUSH ONE (21:10)
[2023-06-21] MEDS: OXYTOCIN 20 UNITS in 0.9% NS 20 UNIT/1,000 ML INFUS.BAG IV SCH (21:10)
[2023-06-21 21:23] LABS: CORD BASE EXCESS -4.4 mmol/L (0-2); CORD PCO2 50.5 mmHg (30-78); CORD pH 7.276 (7.14-7.44)
[2023-06-21 21:25] LABS: CORD HCO3 24.7 mmHg (20-29); CORD PCO2 57.6 mmHg (30-78); CORD pH 7.251 (7.14-7.44)
[2023-06-21] MEDS ORDERED: ONDANSETRON 4 MG/2 ML VIAL IVPUSH PRN (23:15)
[2023-06-22] MEDS: OXYTOCIN 20 UNITS in 0.9% NS 20 UNIT/1,000 ML INFUS.BAG IV SCH (05:10)
[2023-06-22] MEDS: LABETALOL HCL 200 MG TABLET (FP) PO SCH ×4 (05:37→22:16)
[2023-06-22] MEDS: ACETAMINOPHEN 1000 MG/100 ML BAG IVPB PRN ×2 (09:16→14:22)
[2023-06-22] MEDS ORDERED: METHYLERGONOVINE MALEATE 0.2 MG/1 ML AMP IM PRN (17:18)
[2023-06-22] MEDS ORDERED: OXYTOCIN 20 UNITS in 0.9% NS 20 UNIT/1,000 ML INFUS.BAG IV SCH (17:30)
[2023-06-22] MEDS ORDERED: oxyCODONE HCL 5 MG TABLET PO PRN (17:30)
[2023-06-22] MEDS: oxyCODONE HCL 5 MG TABLET PO PRN ×2 (18:19→23:48)
[2023-06-22] MEDS: SIMETHICONE 80 MG TAB.CHEW (FP) PO PRN (18:19)
[2023-06-22] MEDS: ACETAMINOPHEN 325 MG TABLET (FP) PO PRN (20:51)
[2023-06-23] MEDS: SIMETHICONE 80 MG TAB.CHEW (FP) PO PRN ×4 (00:30→16:35)
[2023-06-23] MEDS: ACETAMINOPHEN 1000 MG/100 ML BAG IVPB PRN ×2 (01:08→06:39)
[2023-06-23] MEDS ORDERED: BISACODYL 10 MG SUPP.RECT RC PRN (05:17)
[2023-06-23] MEDS: LABETALOL HCL 200 MG TABLET (FP) PO SCH ×3 (05:35→22:59)
[2023-06-23 07:33] LABS: BASO % 0.3 % (0-2.0); EOS % 0.1 % (0-4.5); HEMOGLOBIN 7.4 GM/dL (10.7-15.3); LYMPH % 12.4 % (8-40); MCH 22.5 pg (25.7-33.7); MCHC 30.9 g/dl (32.0-36.0); MEAN CELL VOLUME 72.7 fl (80-96); MEAN PLT VOLUME 7.8 fl (7.5-11.1); MONO % 4.2 % (3.8-10.2); PLATELET COUNT 204 10^3/uL (134-434); RBC 3.31 M/mm3 (3.60-5.2); RDW 19.7 % (11.6-15.6); WHITE BLOOD COUNT 14.8 K/mm3 (4.0-10.0)
[2023-06-23] MEDS: FERROUS SO4 325 MG TABLET (FP) PO SCH ×2 (09:25→16:35)
[2023-06-23] MEDS: PRENATAL VITAMINS W/ FOLIC ACID TABLET (FP) PO SCH (09:25)
[2023-06-23] MEDS: ACETAMINOPHEN 325 MG TABLET (FP) PO PRN (12:18)
[2023-06-23] MEDS ORDERED: FENTANYL/BUPIVACAINE/NS/PF - PCEA - 50 ML DISP.SYRIN EP SCH (12:40)
[2023-06-23] MEDS: IBUPROFEN 600 MG TABLET (FP) PO PRN (16:35)
[2023-06-24] MEDS: SIMETHICONE 80 MG TAB.CHEW (FP) PO PRN (05:30)
[2023-06-24] MEDS: IBUPROFEN 600 MG TABLET (FP) PO PRN (05:30)
[2023-06-24] MEDS: LABETALOL HCL 200 MG TABLET (FP) PO SCH ×2 (06:10→14:00)
[2023-06-24 08:58] VITALS: RESP 16
[2023-06-24 09:00] VITALS: TEMP 98
[2023-06-24] MEDS: PRENATAL VITAMINS W/ FOLIC ACID TABLET (FP) PO SCH (09:07)
[2023-06-24] MEDS: FERROUS SO4 325 MG TABLET (FP) PO SCH (09:07)
[2023-06-24 13:57] VITALS: BP 140/84; PULSE 83
== END 2023-06-24 15:20 | disposition home or self-care (01) | DRG 788 ==
LOC: JLDR 20:25 → J3W 06-21 23:21
PROVIDERS: ADMIT Obstetrics & Gynecology; ATTEND Obstetrics & Gynecology
PROC: 10D00Z1 Extraction of Products of Conception, Low, Open Approach (ICD-10-PCS; principal; 2023-06-21)
DX: O13.4 Gestational [pregnancy-induced] hypertension without significant proteinuria, complicating childbirth (principal); O76 Abnormality in fetal heart rate and rhythm complicating labor and delivery; Z3A.39 39 weeks gestation of pregnancy; Z37.0 Single live birth
CPT/HCPCS: 36415; 36600; 80048; 82570; 82803; 82977; 83010; 84156; 84450; 84460; 84550; 85025; 85032; 85045; 85610; 85730; 86780; 86850; 86900; 86901; 94010